=== PATIENT | male | born 1945 | race Caucasian/White ===

== ENCOUNTER 2019-11-06 04:14 | Emergency (ER) | payer BC ==
[~2019-11-06] VITALS: Ht 170.2 cm; Wt 90.9 kg
[2019-11-06 04:14] VITALS: BP 128/77
[2019-11-06] MEDS ORDERED: SOTA80TA2 PO (04:30)
[2019-11-06] MEDS ORDERED: SILD100T PO (04:30)
[2019-11-06] MEDS ORDERED: COUM1TAB17 PO (04:30)
[2019-11-06] MEDS ORDERED: PROB500T29 PO (04:30)
[2019-11-06] MEDS ORDERED: CLAR5TAB11 PO (04:30)
[2019-11-06] MEDS ORDERED: AMLO1TAB25 PO (04:30)
[2019-11-06] MEDS ORDERED: SIMV20TA22 PO (04:30)
[2019-11-06] MEDS ORDERED: HYDR100T PO (04:30)
[2019-11-06] MEDS ORDERED: THERTAB PO (04:30)
[2019-11-06] MEDS ORDERED: FISH1000 PO (04:30)
[2019-11-06] MEDS ORDERED: ALLO100T PO (04:30)
[2019-11-06] MEDS ORDERED: LASI20TA3 PO (04:30)
[2019-11-06] MEDS ORDERED: ASPI81TA86 PO (04:30)
[2019-11-06] MEDS ORDERED: CLAR10CA3 PO (04:30)
[2019-11-06 04:57] LABS: BILIRUBIN, URINE MANUAL OBSCURED (NEGATIVE); GLUCOSE, URINE (UA) MANUAL NEGATIVE (NEGATIVE); KETONE, URINE MANUAL OBSCURED mg/dL (NEGATIVE); UROBILINOGEN, URINE MANUAL OBSCURED mg/dl (NORMAL)
[2019-11-06 05:04] LABS: RBC, URINE TNTC /hpf (0-3); SQUAMOUS EPITHELIAL CELL URINE NONE SEEN /hpf (SMALL AMT)
[2019-11-06 05:05] LABS: BACTERIA, URINE NONE SEEN; HYALINE CAST, URINE NONE SEEN /lpf (0-1); MUCUS, URINE SMALL AMOUNT (NEGATIVE)
[2019-11-06 05:12] LABS: BASO # 0.1 10^3/uL (0.0-0.2); BASO % 1.3 % (0.0-1.0); EOS # 0.6 10^3/uL (0.0-0.5); EOS % 6.9 % (0.0-3.0); HEMATOCRIT 52.8 % (42.0-52.0); HEMOGLOBIN 17.9 g/dl (13.5-17.5); LYMPH # 1.6 10^3/uL (1.5-5.0); LYMPH % 17.4 % (24.0-44.0); MEAN CORPUSCULAR HEMOGLOBIN 34.5 pg (27.0-33.0); MEAN CORPUSCULAR HGB CONC 33.9 g/dl (32.0-36.5); MEAN CORPUSCULAR VOLUME 101.7 fl (80.0-96.0); MONO # 0.6 10^3/uL (0.0-0.8); MONO % 6.5 % (0.0-5.0); NEUTROPHILS # 6.1 10^3/uL (1.5-8.5); NEUTROPHILS % 67.5 % (36.0-66.0); PLATELET COUNT, AUTOMATED 173 10^3/uL (150-450); RED BLOOD COUNT 5.19 10^6/uL (4.30-6.10)
[2019-11-06 05:23] LABS: INR 2.79; PARTIAL THROMBOPLASTIN TIME 47.8 SECONDS (25.0-38.4); PROTHROMBIN TIME 29.3 SECONDS (11.8-14.0)
[2019-11-06 05:41] LABS: BLOOD UREA NITROGEN 18 MG/DL (7-18); CALCIUM LEVEL 9.4 MG/DL (8.8-10.2); CARBON DIOXIDE LEVEL 27 MEQ/L (21-32); CHLORIDE LEVEL 107 MEQ/L (98-107); CREATININE FOR GFR 1.07 MG/DL (0.70-1.30); GLOMERULAR FILTRATION RATE > 60.0 (>42); GLUCOSE, FASTING 117 MG/DL (70-100); POTASSIUM SERUM 4.1 MEQ/L (3.5-5.1); SODIUM LEVEL 141 MEQ/L (136-145)
[2019-11-06] MEDS ORDERED: ISOVUE-370 76% 100ML VIAL As Ordered ONE (05:56)
--- NOTE | 2019-11-06 06:40 | REPVR ---
PROCEDURE INFORMATION: Exam: CT Abdomen And Pelvis Without Contrast Exam date and time: 11/06/2019 6:03 AM Age: 74 years old Clinical indication: Abdominal pain; Additional info: Painless hematuria TECHNIQUE: Imaging protocol: Computed tomography of the abdomen and pelvis without contrast. Radiation optimization: All CT scans at this facility use at least one of these dose optimization techniques: automated exposure control; mA and/or kV adjustment per patient size (includes targeted exams where dose is matched to clinical indication); or iterative reconstruction. COMPARISON: No relevant prior studies available. FINDINGS: Lungs: The visualized lungs are grossly clear. Heart: Pacemaker wires are seen at the heart. Liver: The unenhanced liver appears unremarkable. Gallbladder and bile ducts: The gallbladder appears partially contracted. No stones are identified. No biliary ductal dilation is seen. Pancreas: There is diffuse atrophy of the pancreatic parenchyma. Spleen: The unenhanced spleen appears unremarkable. Adrenals: The adrenal glands are normal. Kidneys and ureters: There is a nonobstructing stone in the left kidney. There is mild diffuse parenchymal thinning of the left kidney.There are no ureteral stones or hydronephrosis. There is a 2.0 cm simple cyst in the left kidney. No imaging follow-up needed. There is mild, fairly symmetric bilateral perinephric stranding. Stomach and bowel: Focal fat density within the lumen of the duodenum is probably a small incidental lipoma.The small bowel appears otherwise unremarkable. Moderate diverticulosis is present in the colon, most prominent in the sigmoid and descending colon. There is no dilation or thickening of the colon. Appendix: The appendix is not specifically identified. Intraperitoneal space: There is no free intraperitoneal air. There is no evidence of free intraperitoneal or pelvic fluid. Vasculature: Atherosclerotic changes are present in the abdominal aorta and the iliac arteries. There is focal dilation of the infrarenal abdominal aorta with the aorta measuring 3.5 x 2.8 cm at this level. Lymph nodes: There are multiple small retroperitoneal lymph nodes, not pathologically enlarged by CT criteria. Bladder: There is diffuse moderate thickening of the bladder wall, but this may also be accentuated by under distention. No bladder stones identified. Reproductive: The prostate gland demonstrates moderate nonspecific enlargement. Bones/joints: Degenerative endplate changes are seen at multiple levels in the visualized spine. There is a rightward convex curvature centered in the lumbar spine. Soft tissues: The soft tissues appear unremarkable. IMPRESSION: 1. Enlargement of the prostate and diffuse thickening of the bladder wall, which may be from cystitis or chronic bladder outlet obstruction. No bladder stones identified. Assessment of the bladder is otherwise limited by the lack of IV contrast. 2. Nonobstructing stone in the left kidney lower pole. No ureteral stones or hydronephrosis. 3. Mild parenchymal atrophy in the left kidney. 4. Extensive atherosclerotic disease. Focal aneurysmal dilation of the infrarenal abdominal aorta, measuring 3.5 x 2.8 cm. 5. Diverticulosis without evidence of acute diverticulitis. COMMENTS: Consistent with the [place] [employer]'s Incidental Findings Committee white paper (J Am Moni Radiol 2018): Any incidental renal lesion less than 1.0 cm or classified as too small to characterize, or any incidental cystic renal lesion characterized as simple-appearing, is likely benign. No follow-up imaging is recommended for these lesions per consensus recommendations based on imaging criteria. Electronically signed by: Marlena Shaikh On 11/06/2019 06:40:10 AM
== END 2019-11-06 07:02 | disposition home or self-care (01) ==
LOC: M ED 04:14
DX: R31.9 Hematuria, unspecified (principal); Z79.01 Long term (current) use of anticoagulants; I10 Essential (primary) hypertension; E78.5 Hyperlipidemia, unspecified; I48.91 Unspecified atrial fibrillation; Z79.899 Other long term (current) drug therapy; Z79.82 Long term (current) use of aspirin; F17.210 Nicotine dependence, cigarettes, uncomplicated

== ENCOUNTER → 2019-11-20 | Outpatient (REF) | payer BC ==
[~2019-11-20] MED LIST: ALLO100T PO; AMLO1TAB25 PO; ASPI81TA86 PO; CLAR10CA3 PO; CLAR5TAB11 PO; COUM1TAB17 PO; FISH1000 PO; HYDR100T PO; LASI20TA3 PO; PROB500T29 PO; SILD100T PO; SIMV20TA22 PO; SOTA80TA2 PO; THERTAB PO
[2019-12-15 21:24] LABS: APPEARANCE, URINE CLEAR (CLEAR); BACTERIA, URINE AUTO 1+ (NEGATIVE); BILIRUBIN, URINE AUTO NEGATIVE (NEGATIVE); BLOOD, URINE BLOOD NEGATIVE (NEGATIVE); COLOR, URINE YELLOW (YELLOW); GLUCOSE, URINE (UA) AUTO NEGATIVE (NEGATIVE); KETONE, URINE AUTO NEGATIVE (NEGATIVE); LEUKOCYTE ESTERASE, URINE AUTO NEGATIVE (NEGATIVE); NITRITE, URINE AUTO NEGATIVE (NEGATIVE); PROTEIN, URINE AUTO 1+ mg/dL (NEGATIVE); RBC, URINE AUTO 3 /HPF (0-3); SPECIFIC GRAVITY URINE AUTO 1.012 (1.002-1.035); SQUAMOUS EPITHELIAL CELL UR AU 0 /HPF (0-6); UROBILINOGEN, URINE AUTO 0.2 mg/dL (0.0-2.0); WBC, URINE AUTO 12 /HPF (0-3)
== END ==
LOC: M SMT 11:26
PROVIDERS: ATTEND Nurse Practitioner Family
DX: N39.0 Urinary tract infection, site not specified (principal)

== ENCOUNTER → 2019-11-30 | Outpatient (REF) | payer BC ==
[2019-12-28 13:11] LABS: APPEARANCE, URINE CLEAR (CLEAR); BACTERIA, URINE AUTO NEGATIVE (NEGATIVE); BILIRUBIN, URINE AUTO NEGATIVE (NEGATIVE); BLOOD, URINE BLOOD 3+ (NEGATIVE); COLOR, URINE YELLOW (YELLOW); GLUCOSE, URINE (UA) AUTO NEGATIVE (NEGATIVE); KETONE, URINE AUTO NEGATIVE (NEGATIVE); LEUKOCYTE ESTERASE, URINE AUTO NEGATIVE (NEGATIVE); NITRITE, URINE AUTO NEGATIVE (NEGATIVE); PROTEIN, URINE AUTO 1+ mg/dL (NEGATIVE); RBC, URINE AUTO TNTC /HPF (0-3); SPECIFIC GRAVITY URINE AUTO 1.009 (1.002-1.035); SQUAMOUS EPITHELIAL CELL UR AU 0 /HPF (0-6); UROBILINOGEN, URINE AUTO 0.2 mg/dL (0.0-2.0); WBC, URINE AUTO 8 /HPF (0-3)
== END ==
LOC: M SMT 15:19
PROVIDERS: ATTEND Urology
DX: N39.0 Urinary tract infection, site not specified (principal)

== ENCOUNTER → 2019-12-21 | Outpatient (REF) | payer BC ==
[2019-12-21 19:45] LABS: APPEARANCE, URINE HAZY (CLEAR); BACTERIA, URINE AUTO 1+ (NEGATIVE); BILIRUBIN, URINE AUTO NEGATIVE (NEGATIVE); BLOOD, URINE BLOOD 3+ (NEGATIVE); COLOR, URINE YELLOW (YELLOW); GLUCOSE, URINE (UA) AUTO NEGATIVE (NEGATIVE); KETONE, URINE AUTO NEGATIVE (NEGATIVE); LEUKOCYTE ESTERASE, URINE AUTO 2+ (NEGATIVE); NITRITE, URINE AUTO NEGATIVE (NEGATIVE); PROTEIN, URINE AUTO 1+ mg/dL (NEGATIVE); RBC, URINE AUTO TNTC /HPF (0-3); SPECIFIC GRAVITY URINE AUTO 1.009 (1.002-1.035); SQUAMOUS EPITHELIAL CELL UR AU 0 /HPF (0-6); UROBILINOGEN, URINE AUTO 0.2 mg/dL (0.0-2.0); WBC, URINE AUTO 45 /HPF (0-3)
== END ==
LOC: M LAB REF 18:03
PROVIDERS: ATTEND Nurse Practitioner Women's Health
DX: N39.0 Urinary tract infection, site not specified (principal)

== ENCOUNTER → 2019-12-26 | Outpatient (CLI) | payer BC ==
--- NOTE | 2020-01-24 11:56 | REP ---
CHEST X-RAY: CLINICAL: Preoperative assessment. TECHNIQUE: PA and lateral COMPARISON: None. FINDINGS: The cardiac silhouette is at the upper limits of normal and a dual lead pacemaker is identified in satisfactory position. The lung arreguin demonstrate chronic changes. Perihilar and lower lobe infections (right greater than left), cannot be excluded. No effusion. No pneumothorax. Skeletal structures are intact. IMPRESSION: Cannot exclude lower lobe infiltrates. No prior examinations are available for comparison. Chest CT should be considered for further investigation. MTDD
== END ==
LOC: M ADAMS 13:37
PROVIDERS: ATTEND Physician Assistant
DX: Z01.818 Encounter for other preprocedural examination (principal)

== ENCOUNTER → 2019-12-26 | Outpatient (REF) | payer BC ==
[2019-12-26 18:20] LABS: ALBUMIN 3.1 GM/DL (3.2-5.2); BILIRUBIN,TOTAL 0.5 MG/DL (0.2-1.0); CALCIUM LEVEL 9.9 MG/DL (8.8-10.2); CREATININE FOR GFR 1.31 MG/DL (0.70-1.30); GLOMERULAR FILTRATION RATE 56.8 (>42); POTASSIUM SERUM 4.7 MEQ/L (3.5-5.1); TOTAL PROTEIN 7.7 GM/DL (6.4-8.2)
[2019-12-26 18:26] LABS: HEMATOCRIT 47.3 % (42.0-52.0); HEMOGLOBIN 15.3 g/dl (13.5-17.5); MEAN CORPUSCULAR HEMOGLOBIN 33.2 pg (27.0-33.0); MEAN CORPUSCULAR HGB CONC 32.3 g/dl (32.0-36.5); MEAN CORPUSCULAR VOLUME 102.6 fl (80.0-96.0); PLATELET COUNT, AUTOMATED 319 10^3/uL (150-450); RED BLOOD COUNT 4.61 10^6/uL (4.30-6.10); WHITE BLOOD COUNT 9.4 10^3/uL (4.0-10.0)
[2019-12-26 18:43] LABS: INR 1.65; PROTHROMBIN TIME 19.8 SECONDS (11.8-14.0)
== END ==
LOC: M LABDRWAD 16:31
PROVIDERS: ATTEND Physician Assistant
DX: Z01.818 Encounter for other preprocedural examination (principal); Z79.01 Long term (current) use of anticoagulants

== ENCOUNTER → 2020-01-03 | Outpatient (CLI) | payer BC | LOC: M LABSMTC 11:35 | PROVIDERS: ATTEND Anesthesiology | DX: Z11.59 Encounter for screening for other viral diseases (principal) ==

== ENCOUNTER → 2020-01-04 | Outpatient (CLI) | payer BC ==
--- NOTE | 2020-01-24 11:57 | REP ---
CHEST CT WITHOUT CONTRAST: CLINICAL: Follow up abnormal chest x-ray findings. TECHNIQUE: Axial noncontrast images from the thoracic inlet to the upper abdomen with coronal and sagittal reformations. FINDINGS: The bilateral lung arreguin are well-aerated and essentially clear. No consolidation, effusion or pneumothorax. There is a solitary 5mm noncalcified nodule in the medial left upper lobe (image 58). The tracheobronchial tree is patent. No significant adenopathy. Atherosclerotic changes to the thoracic aorta and coronary arteries noted without aortic aneurysm. Mild cardiomegaly is suggested without pericardial effusion. The left thyroid lobe is assymetrically enlarged and extends below the level of the left clavicle into the superior mediastinum, but without significant mass effect on the airway. Musculoskeletal structures are intact. Limited upper abdomen demonstrates normal bilateral adrenal glands. IMPRESSION: 1. 5mm solitary nodule in the left upper lobe. Consider initial 6-9 month followup. 2. No further acute pleuroparenchymal process appreciated. MTDD
== END ==
LOC: M RAD 11:02
PROVIDERS: ATTEND Physician Assistant
DX: I70.0 Atherosclerosis of aorta (principal); I25.10 Atherosclerotic heart disease of native coronary artery without angina pectoris

== ENCOUNTER 2020-01-08 09:22 | Day surgery (SDC) | payer BC ==
--- NOTE | 2019-12-29 16:28 | HPE ---
PREOPERATIVE HISTORY AND PHYSICAL DATE OF ANTICIPATED ADMISSION: 01/08/2020 ADMITTING DIAGNOSIS: The patient will be undergoing a cystoscopy and button transurethral resection of the prostate (TURP) on 01/08/[address] De Jesus under general anesthesia. HISTORY OF PRESENT ILLNESS: The patient is a new patient to me recently established at my office on 12/20/2019, previously followed by [facility]. He currently feels well, has had recent urinary tract infection being treated with local urology with antibiotics, completed antibiotics on 12/19/2019. He was treated with Keflex. His urine culture on 12/21/2019 had grown greater than 100,000 colonies of Escherichia (E) coli. Denies any fever, chills, abdominal pain, or dysuria but does note scant blood in his urine at times. Denies any kidney pain. He otherwise denies any recent infection or illness. No shortness of breath or chest pain. No palpitations or change in his exercise tolerance. He denies any history of sleep apnea. He does not snore. His sleep is restorative. He has no witnessed apnea and no daytime somnolence. Mr. Alvarez normally hauser in [place] and has a primary care physician (PCP) there and usually spends eight months of the year in [place]. He is followed by a pharmacy laboratory technician for chronic kidney disease and has a natural resource technician in [place]. He will be establishing with Dr. Butcher locally on 01/02/2020 for preoperative cardiovascular clearance. PAST MEDICAL HISTORY: Significant for history of sick sinus syndrome for which he has undergone pacemaker placement. He has a history of atrial fibrillation on chronic Coumadin. He has undergone pharmacologic stress myocardial perfusion with single-photon emission computed tomography (SPECT) by [facility] August 2018. At that time he had no evidence of ischemia or prior infarction. He had a medium defect in the inferior wall which is not reversible consistent with attenuation artifact, normal left ventricular systolic function. Regional wall motion appeared normal and compared to his previous study of 04/14/2014, there were no significant changes. He had frequent premature ventricular complexes (PVCs) noted on his stress test. He has had an echocardiogram by [facility] in July 2018 estimating his left ventricular ejection fraction to be 60-65%. Left atrial chamber was mildly dilated. Minimal aortic regurgitation, mild aortic valve stenosis, trace mitral regurgitation and trace tricuspid regurgitation. No pericardial effusion. He has a history of hyperlipidemia. He is a former smoker, smoked two packs a day for over 40 years. He quit in 2018 and has no documented history of chronic obstructive pulmonary disease (COPD). He has benign prostatic hypertrophy (BPH) for which TURP is scheduled with local urology. He has a history of shingles in August 2019. He has chronic allergic rhinitis, a history of abdominal aortic aneurysm (AAA) 3.5 x 2.[address] of the abdomen and pelvis done at [facility] October 2019. He follows with vascular in [place]. He has a history of chronic low back pain secondary to spinal stenosis for which he follows with neurology in [place]. He has no chronic neuropathy or leg weakness but has undergone injections and physical therapy in the past without relief of his pain and is considering back surgery this winter. He follows with dermatology for history of basal cell carcinoma of the skin. MEDICATIONS INCLUDE: - Hydralazine 100 mg twice a day - Amlodipine 10 mg daily - Simvastatin 20 mg daily - Probenecid 500 mg twice a day - Allopurinol 100 mg daily - Aspirin 81 mg daily - Claritin 10 mg daily - Fish oil daily - Furosemide 20 mg daily - Potassium chloride 20 mEq daily - Sotalol 80 mg twice a day - Sildenafil 100 mg as needed - His Coumadin dose is 5 mg as directed ALLERGIES: No known drug allergies. SOCIAL HISTORY: Former smoker, quit in 2018. Previously smoked two packs of cigarettes a day. Alcohol: Drinks about 4-6 ounces a day. 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 FAMILY HISTORY: Mother has a history of congestive heart failure (CHF). Father had a stroke. His brother has had a stroke. His sister has lung cancer but was a nonsmoker. ROUTINE HEALTH MAINTENANCE: He had a low-dose lung cancer screening CT in 2018 in [place] that did not show any suspicious nodules. He had a 3 cm left lobe thyroid mass not changed from 2017, uncertain whether any workup was done on this. He tells me had another CT in 2018 but I do not have a copy of those results. He has had a colonoscopy in 2019. I do not have the official results. He tells me had two polyps. This was performed by [facility] in [place]. He has had his pneumonia vaccine and he has had Zostavax but will need Shingrix and had recent shingles. REVIEW OF SYSTEMS: He denies any unexplained weight loss or weight gain, fevers or chills or night sweats. HEENT: No headache, ear pain, changes in his hearing, or sore throat. No trouble swallowing. Cardiac: No chest pain or palpitations or significant dyspnea on exertion. No orthopnea or paroxysmal nocturnal dyspnea. Pulmonary: No cough. GI: He denies any nausea or vomiting, heartburn, diarrhea, constipation, melena, or hematochezia. : As per HPI. He does have some lower urinary tract symptoms (LUTS) as well as some slight hematuria and recent UTI. Musculoskeletal: He has chronic back pain as described above. Psychiatric: He denies any depression symptoms today. PHYSICAL EXAMINATION: He is generally well nourished, well developed with no apparent distress. Bright and alert. HEENT: Head is normocephalic, atraumatic. Face is symmetric. TMs are normal. Throat is clear without erythema or exudate. Neck is supple and nontender. He has two approximately 1 cm nontender nodules or perhaps submandibular lymph nodes bilaterally anteriorly. Thyroid is without enlargement. Lungs are clear to auscultation without wheezes, rales or rhonchi. Cardiac: He has a regular rhythm with frequent ectopic beats. There seems to be a trace murmur in the left sternal border. Abdomen is soft, nontender, nondistended without organosplenomegaly. Extremities: No cyanosis, clubbing, or edema. INVESTIGATIONS: He had a urine culture obtained on 12/21/2019 that grew E. coli. This was obtained after he had completed his antibiotics on 12/19/2019. Those results have been sent to Ledy Hamlin at urology to address. He had an EKG in the office today that was atrial paced with paired ventricular premature complexes. No priors are available for comparison. His sodium is 141, potassium 4.7, BUN 21, creatinine 1.3, glucose 110. Liver enzymes were normal. White count 9.4, hemoglobin 15, platelets 319,000. INR is 1.65. Labs were all done on 12/26/2019. Chest x-ray was performed, results are pending at the time of this dictation. ASSESSMENT AND PLAN: 1. Preoperative clearance. The patient will be undergoing cardiac clearance with Dr. Butcher on 01/02/2020 and I will defer cardiac recommendations to Dr. Butcher. He is otherwise medically optimized for the proposed surgical procedure. He is currently on Coumadin for atrial fibrillation and should hold this five days prior to the procedure. All other medications will be held per surgery and anesthesia recommendations. 2. Atrial fibrillation. His rate is controlled. He has a pacer, frequent PVCs. His electrolytes are all stable. His INR today was 1.65. He will remain on his Coumadin until five days prior to surgery at which point he will hold this. 3. Hypertension. Blood pressure is stable and controlled on his current regimen. 4. Congestive heart failure. He appears well compensated today. Echocardiogram results are previously dictated above in the past medical history. We will defer any further evaluations to Dr. Butcher and his preoperative evaluation. 5. Urinary tract infection. As above, he has recently undergone antibiotic therapy with Keflex, completed this on 12/19/2019. His followup urine culture on 12/21/2019 shows greater than 100,000 E. coli. Those results have been sent to Ledy Hamlin and we will defer treatment to urology. 6. History of thyroid nodule and neck seen on previous low-dose CT of the lungs. We will need to determine whether any further evaluation of this has been done in the past and perhaps consider ultrasound of the thyroid in the future but this is not anything that needs to be done prior to surgery. He has two submandibular lymph nodes that are fairly prominent as well. All of this should be worked up in followup. 7. A 14 mm enlarged lymph node on his CT of the abdomen and pelvis. This was noted on a CT done September 2019. However, at that time he was experiencing colitis symptoms with abdominal pain for several weeks. This may need to be followed up in the future but suspect this is related to his illness at the time. 8. Routine health maintenance. He has had shingles recently and at some point we will prescribe Shingrix. The patient is medically stable for the proposed operative procedure. Chest x- ray results are pending at the time of this dictation and we will defer followup to the surgeon. BRENT
[~2020-01-08] VITALS: Ht 172.7 cm; Wt 83.5 kg
[~2020-01-08 09:22] MED LIST changes: +LR 1,000 ML IV ONE
[2020-01-08] MEDS ORDERED: ONDANSETRON 4MG/2ML VIAL As Ordered ONE (09:44)
[2020-01-08] MEDS ORDERED: propofoL 200 MG/20 ML VIAL As Ordered ONE (09:44)
[2020-01-08] MEDS ORDERED: dexameTHASONE 4 MG/ML 1ML VIAL (J1100 PER 1MG) As Ordered ONE (09:44)
[2020-01-08] MEDS ORDERED: MIDAZOLAM INJ 2MG/2ML VIAL (J2250 PER 1MG) As Ordered ONE (09:44)
[2020-01-08] MEDS ORDERED: LIDOCAINE 2% 100MG/5ML SDV (FOR ANES.) As Ordered ONE (09:44)
[2020-01-08 10:04] LABS: INR 1.08; PROTHROMBIN TIME 14.3 SECONDS (11.8-14.0)
[2020-01-08] MEDS ORDERED: ceFAZolin 2 GM/D5W 50 ML IV BAG (J0690 PER 500MG) As Ordered ONE (10:06)
[2020-01-08] MEDS ORDERED: ROCURONIUM BROMIDE 50 MG/5 ML VIAL As Ordered ONE ×2 (10:52→12:06)
[2020-01-08] MEDS ORDERED: ceFAZolin SOD 2 GM in IV 1 EA IV ONE (11:00)
[2020-01-08] MEDS ORDERED: fentaNYL 250 MCG/5 ML INJECTION (J3010) As Ordered ONE (11:03)
[2020-01-08] MEDS ORDERED: PHENYLephrine HCL 500 MCG/5 ML (100MCG/ML) SYRINGE (J2370) As Ordered ONE (11:22)
[2020-01-08] MEDS ORDERED: ACETAMINOPHEN 1000MG 100ML IV BTL (OFIRMEV) (J0131 PER 10MG) As Ordered ONE (11:23)
[2020-01-08] MEDS ORDERED: SUGAMMADEX SODIUM 500 MG/5 ML VIAL (BRIDION) As Ordered ONE (12:18)
[2020-01-08] MEDS ORDERED: fentaNYL 100 MCG/2 ML INJECTION (J3010) IV PRN (13:00)
[2020-01-08] MEDS ORDERED: ONDANSETRON 4MG/2ML VIAL IV PRN (13:00)
[2020-01-08] MEDS ORDERED: LR 1,000 ML IV SCH ×2 (13:00→14:15)
[2020-01-08] MEDS ORDERED: oxyCODONE 5MG TAB PO PRN (13:00)
[2020-01-08] MEDS ORDERED: BELLADONNA 16.2mg/OPIUM 60mg 1 EA SUPP PR PRN (14:15)
[2020-01-08] MEDS ORDERED: LORATADINE 10 MG TAB PO PRN (14:15)
[2020-01-08 14:30] VITALS: BP 138/61
[2020-01-08 15:00] VITALS: BP 142/66
--- NOTE | 2020-01-08 15:53 | CR.PDOC ---
General Date of Consultation: Jan 08, 2020 Consultation Chief complaint: I was called by nursing staff who was instructed by Urology, to provide medical management for reported bradycardia History of present illness: Patient is a 74-year-old male with a PMHx of SSS s/p PM (Spring 2019), A. fib (on Coumadin), HTN, SPECT stress test (08/2018; no evidence of ischemia), DLP, CKD3, Chronic allergic rhinitis, Shingles (08/2019), AAA (currently being surveilled), Chronic Lower back pain 2/2 Spinal stenosis, Gout and BPH who presented to [facility] for an elective urologic procedure. Patient presents [facility] for an elective cystoscopy and TURP procedure. Patient has received outpatient. Medical optimization from his primary care provider, Rissa Goode and his pump and still operator, Dr. Butcher. Patient was scheduled for the procedure because of recurrent UTIs, thought to be secondary to enlarged prostate. Was called to evaluate patient after equipment had reported patient was bradycardic in the 30s. Currently patient is seen sitting up in bed. He denies any chest pain, shortness of breath or palpitations. Denies any nausea, vomiting, abdominal pain, constipation or diarrhea. He does have a Rosales catheter that is present and set to continuous irrigation. Patient denies any recent fevers or chills. Reports that his appetite and weight have been poor because of recurrent UTIs as an o utpatient. Past Medical History: SSS s/p PM (Spring 2019), A. fib (on Coumadin), HTN, SPECT stress test (08/2018; no evidence of ischemia), DLP, CKD3, Chronic allergic rhinitis, Shingles (08/2019), AAA (currently being surveilled), Chronic Lower back pain 2/2 Spinal stenosis, Gout and BPH Past Surgical History: Cervical spine surgery Pilonidal cyst resection Prostate surgery 15 years ago Allergies: See below Medications: See below Family History: - Mother with a history of congestive heart failure - Father with a history of stroke Social History: - Denies the use of illicit drugs; patient reports that he quit smoking cigarettes in 1989 and stop regularly smoking cigars in 2018, but does infrequently used them; patient reports that he does drink alcohol about 4 ounces of whiskey daily - Denies recent travel or sick contacts - Lives with - Occupation; 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 Review of Systems: 10 point review of systems complete, all negative otherwise stated in HPI Physical exam: - Vitals: BP [165/77], HR [79], RR [18], Sat [97%RA], Temp [97.6F] - General: Lying in bed, No acute distress, Speaking in full sentences, AAOx3 - HEENT: NC, AT, PERRLA - CVS: IrIr, +S1S2 - Lungs: Fair air entry bilaterally, No appreciable wheezing / rales / rhonchi - Abdomen: Soft, Non-distended, Non-tender - Extremities: No lower extremity edema, No calf tenderness - Neuro: No focal motor or sensory deficit - Skin: No visible rashes Assessment and Plan: Reported bradycardia - Patient is sitting up in bed, does not appear to be in any acute distress - Denies any chest pain, shortness of breath or palpitations. Denies any lightheadedness or dizziness - Patient remains hemodynamically stable - Physical reveals an irregularly irregular heart rate - Will check EKG, cardiac markers and basic blood work (CBC, CMP, Mag) SSS s/p PM (Spring 2019) - SPECT stress test (08/2018; no evidence of ischemia) - ECHO (July,): EF of 60-65%, left atrial chamber was mildly dilated, minimal aortic regurgitation, mild aortic valve stenosis, trace mitral regurgitation and trace tricuspid regurgitation, no pericardial effusion - Will check EKG A. fib - Patient is continued rate / rhythm control with Sotalol - Currently off anticoagulation for procedure - Will have outpatient follow-up with Dr. Butcher; for resumption of anticoagulation BPH - Patient is status post cystoscopy and TURP (POD#0) - Rosales catheter in place and set to continuous irrigation - Currently being managed by urology HTN - BP well controlled - c/w Hydralazine, Sotalol, Amlodipine and Furosemide with holding parameters DLP - c/w Simvastatin CKD3 - Patient reports that he follows with a supervisor spinning in [place], however, does not have a supervisor spinning established in [place] - Avoid nephrotoxic medications - Will check CMP, Mag Chronic allergic rhinitis Shingles (08/2019) Gout - c/w Allopurinol AAA - Currently being surveilled Chronic Lower back pain 2/2 Spinal stenosis - Follows with a neurologist in [place] DVT prophylaxis - c/w TEDs/ Sequentials - Anticoagulation to resume as per Cardiology Vital Signs/I&O Vital Signs Date Time Temp Pulse Resp B/P (MAP) Pulse Ox O2 Delivery O2 Flow Rate FiO2 01/08/20 13:55 79 16 165/77 (106) 97 Room Air 01/08/20 12:45 2 01/08/20 12:35 97.6 Laboratory Data Labs 24H Laboratory Tests 2 01/08/20 09:39: Prothrombin Time 14.3H, Prothromb Time International Ratio 1.08 01/08/20 15:37: CBC/BMP Allergies Coded Allergies: No Known Allergies (Unverified , 11/06/19) Home Medications Scheduled Allopurinol (Allopurinol) 100 Mg Tablet, 100 MG PO QHS, (Reported) Amlodipine Besylate (Amlodipine Besylate) 10 Mg Tablet, 10 MG PO DAILY, (Reported) Aspirin (Aspir 81) 81 Mg Tablet.dr, 81 MG PO DAILY, (Reported) Furosemide (Lasix) 20 Mg Tablet, 20 MG PO DAILY, (Reported) Loratadine (Claritin) 10 Mg Capsule, 10 MG PO DAILY, (Reported) [place]-3 Fatty Acids/Fish Oil (Fish Oil 1,000 mg Capsule) 1 Each Capsule, 1,000 MG PO DAILY, (Reported) Probenecid (Probenecid) 500 Mg Tablet, 500 MG PO BID, (Reported) Sildenafil Citrate (Sildenafil Citrate) 100 Mg Tablet, 100 MG PO ASDIRECTED, (Reported) Simvastatin (Simvastatin) 20 Mg Tablet, 20 MG PO QHS, (Reported) Sotalol HCl (Sotalol) 80 Mg Tablet, 80 MG PO BID, (Reported) Warfarin Sodium (Coumadin) 5 Mg Tablet, 2.5 MG PO QPM, (Reported) hydrALAZINE HCL (Hydralazine HCl) 100 Mg Tablet, 100 MG PO BID, (Reported) Miscellaneous Medications Vitb6/Mag Cit,Ox/Potassium Cit (Theralith Xr Tablet) 1 Each Tablet.er, 1 TAB PO, (Reported) LONNY LONDON MD Jan 08, 2020 15:53
[2020-01-08 15:59] LABS: BASO # 0.1 10^3/uL (0.0-0.2); BASO % 0.6 % (0.0-1.0); EOS % 0.2 % (0.0-3.0); HEMATOCRIT 48.9 % (42.0-52.0); HEMOGLOBIN 15.9 g/dl (13.5-17.5); LYMPH # 0.7 10^3/uL (1.5-5.0); LYMPH % 7.8 % (24.0-44.0); MEAN CORPUSCULAR HEMOGLOBIN 33.3 pg (27.0-33.0); MEAN CORPUSCULAR HGB CONC 32.5 g/dl (32.0-36.5); MEAN CORPUSCULAR VOLUME 102.5 fl (80.0-96.0); MONO # 0.1 10^3/uL (0.0-0.8); MONO % 0.7 % (0.0-5.0); NEUTROPHILS % 90.4 % (36.0-66.0); PLATELET COUNT, AUTOMATED 186 10^3/uL (150-450); RED BLOOD COUNT 4.77 10^6/uL (4.30-6.10); WHITE BLOOD COUNT 8.9 10^3/uL (4.0-10.0)
[2020-01-08 16:00] VITALS: BP 139/68
[2020-01-08 16:48] LABS: ALT/SGPT 23 U/L (12-78); BILIRUBIN,TOTAL 0.5 MG/DL (0.2-1.0); BLOOD UREA NITROGEN 15 MG/DL (7-18); CALCIUM LEVEL 9.2 MG/DL (8.8-10.2); CARBON DIOXIDE LEVEL 22 MEQ/L (21-32); CHLORIDE LEVEL 110 MEQ/L (98-107); CK-MB VALUE MASS 1.4 NG/ML (<3.6); CPK CREATINE PHOSPHOKINASE 48 U/L (39-308); CREATININE FOR GFR 1.27 MG/DL (0.70-1.30); GLOMERULAR FILTRATION RATE 58.9 (>42); GLUCOSE, FASTING 127 MG/DL (70-100); MAGNESIUM LEVEL 2.1 MG/DL (1.8-2.4); MB/CK RELATIVE INDEX 2.92 (< OR =4); POTASSIUM SERUM 4.7 MEQ/L (3.5-5.1); SODIUM LEVEL 140 MEQ/L (136-145); TOTAL PROTEIN 6.9 GM/DL (6.4-8.2); TROPONIN I < 0.02 NG/ML (< 0.10)
[2020-01-08 17:00] VITALS: BP 139/67
[2020-01-08 18:00] VITALS: BP 143/97
[2020-01-08 22:00] VITALS: BP 127/69
[2020-01-08] MEDS: SOTALOL HCL 80 MG TAB PO SCH (22:00)
[2020-01-08] MEDS: **hydrALAZINE** 50 MG TAB PO SCH (22:00)
[2020-01-09] MEDS ORDERED: UNRESOLVED CLARIFICATION ENTRY XX SCH (00:01)
[2020-01-09 02:00] VITALS: BP 131/70
[2020-01-09 06:00] VITALS: BP 148/80
[2020-01-09 06:55] LABS: BASO # 0.1 10^3/uL (0.0-0.2); BASO % 0.5 % (0.0-1.0); EOS % 0.2 % (0.0-3.0); HEMATOCRIT 44.9 % (42.0-52.0); HEMOGLOBIN 14.7 g/dl (13.5-17.5); LYMPH # 1.6 10^3/uL (1.5-5.0); LYMPH % 9.6 % (24.0-44.0); MEAN CORPUSCULAR HEMOGLOBIN 33.6 pg (27.0-33.0); MEAN CORPUSCULAR HGB CONC 32.7 g/dl (32.0-36.5); MEAN CORPUSCULAR VOLUME 102.7 fl (80.0-96.0); MONO # 0.9 10^3/uL (0.0-0.8); MONO % 5.4 % (0.0-5.0); NEUTROPHILS # 14.1 10^3/uL (1.5-8.5); NEUTROPHILS % 83.5 % (36.0-66.0); PLATELET COUNT, AUTOMATED 168 10^3/uL (150-450); RED BLOOD COUNT 4.37 10^6/uL (4.30-6.10); WHITE BLOOD COUNT 16.9 10^3/uL (4.0-10.0)
[2020-01-09 07:25] LABS: CALCIUM LEVEL 9.2 MG/DL (8.8-10.2); CREATININE FOR GFR 1.31 MG/DL (0.70-1.30); GLOMERULAR FILTRATION RATE 56.8 (>42); POTASSIUM SERUM 4.3 MEQ/L (3.5-5.1)
--- NOTE | 2020-01-09 07:42 | DS.PDOC ---
Discharge Summary General Date of Admission 01/08/20 Date of Discharge 01/09/20 Discharge Summary PROCEDURES PERFORMED DURING STAY: [None]. ADMITTING DIAGNOSES: 1. BPH with obstruction DISCHARGE DIAGNOSES: 1. BPH 2. Bradycardia COMPLICATIONS/CHIEF COMPLAINT: Benign Prostatic Hyperplasia. HISTORY OF PRESENT ILLNESS: Pt has BPH with obstruction not responding to medications. Brought to OR for TURP HOSPITAL COURSE: Pt is tolerating the canas cath well. Urine is now pink. He exhibited some bradycardia yesterday, but the monitor was not picking up the signal well. He is stable and ready for discharge. DISCHARGE MEDICATIONS: Please see below. ALLERGIES: Please see below. PHYSICAL EXAMINATION ON DISCHARGE: VITAL SIGNS: Please see below. GENERAL: Alert, orinted, comfortable HEENT: WNL NECK: WNL CARDIOVASCULAR EXAMINATION: Irregular beat RESPIRATORY EXAMINATION: WNL ABDOMINAL EXAMINATION: WNL EXTREMITIES: WNL SKIN: WNL NEUROLOGICAL EXAMINATION: WNL PSYCHIATRIC EXAMINATION: LABORATORY DATA: Please see below. IMAGING: PROGNOSIS: GOOD ACTIVITY: [As tolerated]. DIET: Regular DISCHARGE PLAN: Home today DISPOSITION: . DISCHARGE INSTRUCTIONS: 1. . ITEMS TO FOLLOWUP ON ON OUTPATIENT: 1. . DISCHARGE CONDITION: [Stable]. TIME SPENT ON DISCHARGE: Greater than minutes. Vital Signs/I&Os Vital Signs Date Time Temp Pulse Resp B/P (MAP) Pulse Ox O2 Delivery O2 Flow Rate FiO2 01/09/20 06:00 98.3 75 18 148/80 (102) 96 Room Air 01/08/20 12:45 2 I&O- Last 24 Hours up to 6 AM 01/09/20 06:00 Intake Total 4230 ml Balance 4230 ml Laboratory Data Labs 24H Laboratory Tests 2 01/08/20 09:39: Prothrombin Time 14.3H, Prothromb Time International Ratio 1.08 01/08/20 15:37: Immature Granulocyte % (Auto) 0.3, Neutrophils (%) (Auto) 90.4H, Lymphocytes (%) (Auto) 7.8L, Monocytes (%) (Auto) 0.7, Eosinophils (%) (Auto) 0.2, Basophils (%) (Auto) 0.6, Neutrophils # (Auto) 8.0, Lymphocytes # (Auto) 0.7L, Monocytes # (Auto) 0.1, Eosinophils # (Auto) 0.0, Basophils # (Auto) 0.1, Nucleated Red Blood Cells % (auto) 0.0, Anion Gap 8, Glomerular Filtration Rate 58.9, Calcium Level 9.2, Magnesium Level 2.1, Total Bilirubin 0.5, Aspartate Amino Transf (AST/SGOT) 23, Alanine Aminotransferase (ALT/SGPT) 23, Alkaline Phosphatase 89, Total Creatine Kinase 48, Creatine Kinase MB 1.4, Creatine Kinase MB Relative Index 2.92, Troponin I < 0.02, Total Protein 6.9, Albumin 3.0L, Albumin/Globulin Ratio 0.8 01/09/20 06:39: Immature Granulocyte % (Auto) 0.8, Neutrophils (%) (Auto) 83.5H, Lymphocytes (%) (Auto) 9.6L, Monocytes (%) (Auto) 5.4H, Eosinophils (%) (Auto) 0.2, Basophils (%) (Auto) 0.5, Neutrophils # (Auto) 14.1H, Lymphocytes # (Auto) 1.6, Monocytes # (Auto) 0.9H, Eosinophils # (Auto) 0.0, Basophils # (Auto) 0.1, Nucleated Red Blood Cells % (auto) 0.0, Anion Gap 6L, Glomerular Filtration Rate 56.8, Calcium Level 9.2, Magnesium Level 2.0 CBC/BMP Laboratory Tests 01/08/20 15:37 01/09/20 06:39 Discharge Medications Scheduled Allopurinol (Allopurinol) 100 Mg Tablet, 100 MG PO QHS, (Reported) Amlodipine Besylate (Amlodipine Besylate) 10 Mg Tablet, 10 MG PO DAILY, (Reported) Aspirin (Aspir 81) 81 Mg Tablet.dr, 81 MG PO DAILY, (Reported) Furosemide (Lasix) 20 Mg Tablet, 20 MG PO DAILY, (Reported) Loratadine (Claritin) 10 Mg Capsule, 10 MG PO DAILY, (Reported) [place]-3 Fatty Acids/Fish Oil (Fish Oil 1,000 mg Capsule) 1 Each Capsule, 1,000 MG PO DAILY, (Reported) Probenecid (Probenecid) 500 Mg Tablet, 500 MG PO BID, (Reported) Sildenafil Citrate (Sildenafil Citrate) 100 Mg Tablet, 100 MG PO ASDIRECTED, (Reported) Simvastatin (Simvastatin) 20 Mg Tablet, 20 MG PO QHS, (Reported) Sotalol HCl (Sotalol) 80 Mg Tablet, 80 MG PO BID, (Reported) Warfarin Sodium (Coumadin) 5 Mg Tablet, 2.5 MG PO QPM, (Reported) hydrALAZINE HCL (Hydralazine HCl) 100 Mg Tablet, 100 MG PO BID, (Reported) Miscellaneous Medications Vitb6/Mag Cit,Ox/Potassium Cit (Theralith Xr Tablet) 1 Each Tablet.er, 1 TAB PO, (Reported) Allergies Coded Allergies: No Known Allergies (Unverified , 11/06/19) BALWINDER EARLY MD Jan 09, 2020 07:42
[2020-01-09 08:42] VITALS: BP 148/80
[2020-01-09] MEDS: SOTALOL HCL 80 MG TAB PO SCH (08:42)
[2020-01-09] MEDS: **hydrALAZINE** 50 MG TAB PO SCH (08:42)
[2020-01-09] MEDS ORDERED: allopurinoL 100 MG TAB PO SCH (09:00)
[2020-01-09] MEDS ORDERED: SIMVASTATIN 20 MG TAB PO SCH (09:00)
[2020-01-09] MEDS ORDERED: POTASSIUM CHLORIDE 10 MEQ SR TABLET PO SCH (09:00)
[2020-01-09] MEDS ORDERED: amLODIPine 10 MG TAB PO SCH (09:00)
[2020-01-09] MEDS ORDERED: FUROSEMIDE 20 MG TAB PO SCH (09:00)
[2020-01-09] MEDS ORDERED: PROBENECID 500 MG TAB PO SCH (09:00)
--- NOTE | 2020-01-09 11:27 | IPNPDOC ---
Text Note Date of Service The patient was seen on 01/09/20. NOTE Subjective: Patient is a 74-year-old male with a PMHx of SSS s/p PM (Spring 2019), A. fib (on Coumadin), HTN, SPECT stress test (08/2018; no evidence of ischemia), DLP, CKD3, Chronic allergic rhinitis, Shingles (08/2019), AAA (currently being surveilled), Chronic Lower back pain 2/2 Spinal stenosis, Gout and BPH who presented to [facility] for an elective urologic procedure. Patient presents [facility] for an elective cystoscopy and TURP procedure. Patient has received outpatient. Medical optimization from his primary care provider, Rissa Goode and his card iologist, Dr. Butcher. Hospital services call for evaluation of bradycardia. Patient was seen and examined at the bedside. Patient has had an uneventful evening. Denies any chest pain, shortness breath, palpitations. Denies any nausea, vomiting, abdominal pain. Patient has a Rosales catheter remains in place. Objective: Vitals (See below) General: Lying in bed, appears comfortable, AAOx3 HEENT: NC, AT CVS: +S1S2 Lungs: Fair air entry b/l, no appreciable wheezing, rhonchi or rales Abdomen: Soft, ND, NT Extremities: - Edema, - Calf tenderness Assessment and plan: Reported bradycardia - Heart monitors had reported bradycardia, however EKG does not reveal bradycardia - No acute any acute distress / No events overnight / Asymptomatic - Hemodynamically stable - Physical reveals an irregularly irregular heart rate - EKG with frequent PVCs; patient reports this is a chronic problem and follows cardiology locally, Dr. Butcher - Outpatient follow up with Dr. Butcher SSS s/p PM (Spring 2019) - SPECT stress test (08/2018; no evidence of ischemia) - ECHO (July,): EF of 60-65%, left atrial chamber was mildly dilated, minimal aortic regurgitation, mild aortic valve stenosis, trace mitral regurgitation and trace tricuspid regurgitation, no pericardial effusion A. fib - Patient is is on rate / rhythm control with Sotalol - Currently off anticoagulation given recent TURP procedure - Will have outpatient follow-up with Dr. Butcher; for resumption of anticoagulation BPH - Patient is status post cystoscopy and TURP (POD#0) - Rosales catheter in place and set to continuous irrigation - Currently being managed by urology HTN - BP well controlled - c/w Hydralazine, Sotalol, Amlodipine and Furosemide with holding parameters DLP - c/w Simvastatin CKD3 - Patient reports that he follows with a supervisor forming and tempering in [place], however, does not have a supervisor forming and tempering established in [place] - Avoid nephrotoxic medications Chronic allergic rhinitis Shingles (08/2019) Gout - c/w Allopurinol AAA - Currently being surveilled Chronic Lower back pain 2/2 Spinal stenosis - Follows with a neurologist in [place] DVT prophylaxis - c/w TEDs/ Sequentials - Anticoagulation to resume as per Cardiology and Urology Disposition: - Patient will likely be discharged home today with outpatient follow-up with Urology, PCP and Cardiology VS,Emily, I+O VS, Emily, I+O Laboratory Tests 01/08/20 15:37 01/09/20 06:39 Vital Signs Date Time Temp Pulse Resp B/P (MAP) Pulse Ox O2 Delivery O2 Flow Rate FiO2 01/09/20 08:42 75 148/80 01/09/20 06:00 98.3 18 96 Room Air 01/08/20 12:45 2 I&O- Last 24 Hours up to 6 AM 01/09/20 06:00 Intake Total 4230 ml Balance 4230 ml LONNY LONDON MD Jan 09, 2020 11:27
[2020-01-10] MEDS ORDERED: UNRESOLVED CLARIFICATION ENTRY XX SCH (00:01)
--- NOTE | 2020-01-12 10:32 | ECGEPIP ---
[facility] Test Date: 2020-01-08 Pat Name: CROW ELMORE Department: Room: [place] [address] Gender: Male Manager Change: LULÚ : 1945 Requested By: LONNY LONDON Order Number: [id number] Reading MD: Fab Crowley Measurements Intervals [place] Rate: 69 P: 205 LA: 240 QRS: 18 QRSD: 107 T: -46 QT: 445 QTc: 480 Interpretive Statements ELECTRONIC ATRIAL PACEMAKER ELECTRONIC VENTRICULAR PACEMAKER -- CONTOUR ANALYSIS BASED ON INTRINSIC RHYTHM INDETERMINATE AXIS MODERATE T-WAVE ABNORMALITY, CONSIDER INFERIOR ISCHEMIA ABNORMAL ECG NO PREVIOUS SEE SCANNED DOWNTIME REPORT
--- NOTE | 2020-01-22 13:00 | RO ---
DATE OF OPERATION: 01/08/2020 PREOPERATIVE DIAGNOSIS: Benign prostatic hypertrophy (BPH) with obstruction. POSTOPERATIVE DIAGNOSIS: Benign prostatic hypertrophy (BPH) with obstruction with prostate abscess. PROCEDURE: Transurethral resection (TUR) of prostate. SURGEON: Beau De Jesus MD ANESTHESIA: General. INDICATION FOR OPERATION: This is a 74-year-old, white male with hematuria and obstructive uropathy. Cystoscopy showed the patient had significant prostatic regrowth with some rather abnormally bland-looking tissue. He was, therefore, brought to the operating room for a TUR of prostate. DESCRIPTION OF OPERATION: The patient was anesthetized with general anesthesia, placed in lithotomy position, prepped with Betadine paint, draped in an aseptic manner and timeout was performed. A 26-Malawian resectoscope was then inserted into the meatus and advanced under direct vision of a 30-degree lens to the bladder. The patient was found to have significant prostatic hyperplasia regrowth with lateral and median lobes. The ureteral orifices were then identified and avoided throughout the case. Using the resectoscope loop, the prostate tissue was resected beginning with the median lobe. This resection was then carried circumferentially around the bladder neck, the right and left lateral lobes, anterior and floor of the prostate. Hemostasis was achieved with cauterization using the button electrode. The chips were then irrigated out of the bladder and the resectoscope was removed. He was then catheterized with a 24-Malawian three-way Rosales catheter over a wire guide. The balloon was inflated with 45 mL of sterile water and connected to closed drainage, continuous bladder irrigation, and the patient was then awakened and sent to the recovery room in stable condition having tolerated the procedure well. BRENT
== END 2020-01-09 10:40 | disposition home or self-care (01) ==
LOC: M SDC 09:22 → M MS5PR 14:05 → M SDC 01-09 10:40
PROVIDERS: ATTEND Urology
DX: N40.1 Benign prostatic hyperplasia with lower urinary tract symptoms (principal); N13.8 Other obstructive and reflux uropathy; R31.9 Hematuria, unspecified; E04.1 Nontoxic single thyroid nodule; E78.5 Hyperlipidemia, unspecified; I11.0 Hypertensive heart disease with heart failure; I48.91 Unspecified atrial fibrillation; I50.9 Heart failure, unspecified; J30.89 Other allergic rhinitis; J44.9 Chronic obstructive pulmonary disease, unspecified; R59.0 Localized enlarged lymph nodes; Z79.01 Long term (current) use of anticoagulants; Z79.82 Long term (current) use of aspirin; Z79.899 Other long term (current) drug therapy; Z87.440 Personal history of urinary (tract) infections; Z87.891 Personal history of nicotine dependence; Z95.0 Presence of cardiac pacemaker
CPT/HCPCS: 36415; 52601; 80048; 80053; 82550; 82553; 83735; 84484; 85025; 85610; 88305; 93005; J0131; J1100; J2250; J2370; J2405; J3010

== ENCOUNTER → 2021-09-26 | Outpatient (CLI) | payer BC ==
[~2021-09-26] MED LIST changes: -LR 1,000 ML IV ONE
== END ==
LOC: M LABSMTC 09:37
DX: Z20.822 Contact with and (suspected) exposure to COVID-19 (principal)